=== PATIENT | male | born 1995 | race Caucasian/White ===

== ENCOUNTER 2018-07-18 11:10 | Emergency (ER) | payer MEDICAID ==
[2018-07-18] MEDS ORDERED: Ondansetron 4 MG/2 ML SDV IVPUSH ONE (12:02)
[2018-07-18] MEDS ORDERED: Sodium Chloride 0.9% 1,000 ML IV SCH ×2 (12:15→13:00)
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
--- NOTE | 2018-07-18 14:32 | CRLUS ---
INDICATION: Right upper quadrant pain TECHNIQUE: Ultrasound abdomen limited. Sonographic images of the right upper quadrant were obtained using copeland-scale and color Doppler images. COMPARISON: None available FINDINGS: Liver: Normal in size and echotexture. No masses. Foci of intrahepatic biliary dilatation are difficult to exclude. Gallbladder: No stones or sludge. Normal wall thickness. No pericholecystic fluid. Common bile duct: 4 mm. Pancreas: Mildly inhomogeneous echotexture. Right kidney: 10.8 x 5.1 x 5.9 cm. Normal echotexture and cortex. No masses, stones, or hydronephrosis. IMPRESSION: No cholelithiasis. Inhomogeneous pancreatic echotexture, nonspecific. Correlate clinically. Areas of intrahepatic biliary dilatation are difficult to exclude, however there is no significant extrahepatic biliary dilatation. If clinically indicated, consider followup evaluation. Dictated by Maxim Burris MD @ 07/18/2018 2:30:59 PM Dictated by: Maxim Burris MD @ 07/18/2018 14:31:22 (Electronically Signed)
== END 2018-07-18 15:56 | disposition home or self-care (01) ==
LOC: JP.ED 11:10
DX: K52.9 Noninfective gastroenteritis and colitis, unspecified (principal); E86.0 Dehydration; F17.220 Nicotine dependence, chewing tobacco, uncomplicated; Z88.0 Allergy status to penicillin
CPT/HCPCS: 36415; 76705; 80053; 81001; 85025; 86140; 96361; 96374; 99284; J2405; J7030

== ENCOUNTER 2019-08-21 13:57 | Emergency (ER) | payer OTHER, MEDICAID ==
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
== END 2019-08-21 15:29 | disposition home or self-care (01) ==
LOC: JP.ED 13:57
DX: S16.1XXA Strain of muscle, fascia and tendon at neck level, initial encounter (principal); S00.03XA Contusion of scalp, initial encounter; Z88.0 Allergy status to penicillin; V44.5XXA Car driver injured in collision with heavy transport vehicle or bus in traffic accident, initial encounter
CPT/HCPCS: 70450; 70450-26; 72125; 72125-26; 99284-25